=== PATIENT | female | born 1985 ===

== ENCOUNTER → 2018-01-02 | Outpatient (CLI) | payer BC | LOC: WOUNDCARE 08:40 | PROVIDERS: ATTEND Surgery | DX: L98.492 Non-pressure chronic ulcer of skin of other sites with fat layer exposed (principal); L22 Diaper dermatitis | CPT/HCPCS: 11042; 87070; 87075; 87077; 87186; 87205 ==

== ENCOUNTER → 2018-01-09 | Outpatient (CLI) | payer BC | LOC: WOUNDCARE 09:26 | PROVIDERS: ATTEND Nurse Practitioner | DX: L98.492 Non-pressure chronic ulcer of skin of other sites with fat layer exposed (principal); L22 Diaper dermatitis | CPT/HCPCS: 11042 ==

== ENCOUNTER → 2018-01-23 | Outpatient (CLI) | payer BC | LOC: WOUNDCARE 09:24 | PROVIDERS: ATTEND Nurse Practitioner | DX: L98.492 Non-pressure chronic ulcer of skin of other sites with fat layer exposed (principal); L22 Diaper dermatitis; L03.311 Cellulitis of abdominal wall | CPT/HCPCS: 99212 ==